=== PATIENT | male | born 1955 | race Caucasian/White ===

== ENCOUNTER 2016-07-16 06:33 | Day surgery (SDC) | payer BC ==
[2016-07-16] MEDS ORDERED: Lactated Ringers 1,000 ML IV SCH (06:45)
[2016-07-16] MEDS ORDERED: Sodium Chloride 0.9% 10 ML Syringe FLUSH PRN (06:45)
[2016-07-16] MEDS ORDERED: Propofol 200 MG/20 ML SDV IV ONE (07:48)
[2016-07-16] MEDS ORDERED: Midazolam 1 MG/ML 2 ML SDV IV ONE (07:48)
--- NOTE | 2016-07-16 08:55 | PCM.OPNOTE ---
- General Post-Op/Procedure Note Date of Surgery/Procedure: 07/16/16 Operative Procedure(s): c scope with bx Findings: sigmoid and rectal polyp Pre Op Diagnosis: screening Post-Op Diagnosis: sigmoid and rectal polyp Primary Surgeon: Joey Benavidez Anesthesia Provider: Milagros Morris Pathology: sigmoid and rectal polyp Complications: None Condition: Good Free Text/Narrative:: see dictation
[2016-07-16 09:22] VITALS: BP 117/79
--- NOTE | 2016-07-16 09:27 | OR ---
DATE OF OPERATION: 07/16/2016 SURGEON: Joey Benavidez MD PROCEDURE PERFORMED: Colonoscopy with cold forceps and cold loop biopsy. PREOPERATIVE DIAGNOSIS: Need for screening C-scope. POSTOPERATIVE DIAGNOSIS: Rectal polyp and sigmoid colon polyp. INDICATIONS FOR PROCEDURE: This is a 61-year-old white male who presents for his initial screening colonoscopy. DESCRIPTION OF OPERATION: After an excellent IV sedation was administered, digital rectal exam was performed. No marked abnormality was noted. The flexible colonoscope was inserted and advanced without difficulty to the cecum. The prep was excellent. The following findings were noted. Ascending colon, unremarkable. Transverse colon, unremarkable. Descending colon, unremarkable. Sigmoid, distal sigmoid, small 3 mm polypoid lesion, biopsied with cold biopsy forceps and sent for permanent. In the rectum, there was a small what appeared to be a 1 cm lesion biopsied with cold loop snare and sent for permanent. The colon was deflated and scope was removed. The patient tolerated the procedure well and was taken to recovery in good condition. /[id number] /[id number]
== END 2016-07-16 09:24 | disposition home or self-care (01) ==
LOC: FB.SDS 06:33
PROVIDERS: ATTEND Surgery
DX: Z12.11 Encounter for screening for malignant neoplasm of colon (principal); D12.5 Benign neoplasm of sigmoid colon; D12.8 Benign neoplasm of rectum; K21.9 Gastro-esophageal reflux disease without esophagitis; Z87.891 Personal history of nicotine dependence
CPT/HCPCS: 45380; 45385; J2250; J2704; J7120; 88305

== ENCOUNTER 2024-11-02 07:06 | Day surgery (SDC) | payer MEDICARE ==
[~2024-11-02 07:06] MED LIST: Sodium Chloride 0.9% 10 ML Syringe FLUSH PRN
[2024-11-02] MEDS ORDERED: Propofol 200 MG/20 ML SDV IV ONE (07:07)
[2024-11-02] MEDS ORDERED: Midazolam 1 MG/ML 2 ML SDV IV ONE (07:07)
[2024-11-02] MEDS ORDERED: Flumazenil 0.1 MG/ML 5 ML MDV IV ONE (07:07)
[2024-11-02] MEDS: Lactated Ringers 1,000 ML IV SCH (07:38)
[2024-11-02 10:57] VITALS: BP 125/79; PULSE 71
== END 2024-11-02 10:53 | disposition home or self-care (01) ==
LOC: FB.SDS 07:06
PROVIDERS: ATTEND Surgery
DX: Z12.11 Encounter for screening for malignant neoplasm of colon (principal); D12.2 Benign neoplasm of ascending colon; D12.6 Benign neoplasm of colon, unspecified; K57.30 Diverticulosis of large intestine without perforation or abscess without bleeding; F17.290 Nicotine dependence, other tobacco product, uncomplicated; Z88.7 Allergy status to serum and vaccine; Z86.0101 Personal history of adenomatous and serrated colon polyps; Z79.899 Other long term (current) drug therapy
CPT/HCPCS: 00811; 88305; A9270-GY; J2003; J2250; J2704; J3490; J7120